=== PATIENT | female | born 1995 | race Caucasian/White ===

== ENCOUNTER 2017-03-08 08:17 | Emergency (ER) | payer OTHER ==
[~2017-03-08] VITALS: Ht 152.4 cm; Wt 53.0 kg
[2017-03-08 08:28] VITALS: Ht 152.4 cm; Wt 53.0 kg
[2017-03-08] MEDS ORDERED: KETOROLAC 30 MG INJ IV STA (08:52)
[2017-03-08 09:32] LABS: ADD SCAN DIFF NO
[2017-03-08 09:34] LABS: BASOPHILS % 0.4 % (0.0-2.0); EOSINOPHILS # 0.1 10^3/ul (0.0-0.5); EOSINOPHILS % 1.5 % (0.0-7.0); LYMPHOCYTES # 1.5 10^3/ul (0.8-2.9); LYMPHOCYTES % 18.4 % (18.0-55.0); MEAN CORPUSCULAR HEMOGLOBIN 30.7 pg (29.0-33.0); MEAN CORPUSCULAR HGB CONC 32.5 g/dl (32.0-37.0); MEAN CORPUSCULAR VOLUME 94.6 fl (72.0-104.0); MEAN PLATELET VOLUME 11.1 fl (7.4-10.4); MONOCYTE # 0.5 10^3/ul (0.3-0.9); MONOCYTES % 6.8 % (0.0-13.0); NEUTROPHIL # 5.8 10^3/ul (1.6-7.5); NEUTROPHILS % 72.5 % (30.0-74.0); PLATELET COUNT 232 10^3/UL (140-415); RED BLOOD COUNT 4.23 10^6/ul (4.20-5.40); RED CELL DISTRIBUTION WIDTH 12.2 % (11.5-14.5)
[2017-03-08 09:47] LABS: ALBUMIN 4.3 g/dl (3.3-4.9)
[2017-03-08 09:48] LABS: POTASSIUM 4.3 mmol/L (3.5-5.1)
[2017-03-08 09:50] LABS: ALBUMIN/GLOBULIN RATIO 1.02; BILIRUBIN,INDIRECT 0.2 mg/dl (0-1.1); BILIRUBIN,TOTAL 0.2 mg/dl (0.2-1.3); CREATININE 0.56 mg/dl (0.44-1.00); TOTAL PROTEIN 8.5 g/dl (6.1-8.1)
[2017-03-08 09:51] LABS: CALCIUM 9.7 mg/dl (8.4-10.2)
[2017-03-08 09:52] LABS: ADD UMIC YES; URINE BILIRUBIN (Dip) NEGATIVE (NEGATIVE); URINE BLOOD (Dip) 1+ (NEGATIVE); URINE COLOR LT. YELLOW (YELLOW); URINE GLUCOSE (Dip) NEGATIVE (NEGATIVE); URINE KETONES (Dip) NEGATIVE (NEGATIVE); URINE LEUKOCYTE ESTERASE (Dip) NEGATIVE (NEGATIVE); URINE NITRITE (Dip) NEGATIVE (NEGATIVE); URINE TOTAL PROTEIN (Dip) NEGATIVE (NEGATIVE); URINE UROBILINOGEN (Dip) 0.2 E.U./dL (0.1-1.0)
[2017-03-08 10:10] LABS: URINE RBCS 0-2 /HPF (0)
--- NOTE | 2017-03-08 10:33 | RADRPT ---
PROCEDURE: US Pelvis. CLINICAL INDICATION: pelvic pain TECHNIQUE: Multiple sonographic images of the pelvis were obtained utilizing a transabdominal and endovaginal technique. The images were reviewed on a PACS workstation. COMPARISON: None. FINDINGS: The uterus is normal in size with a normal appearance of the myometrium. The uterus measures 8.3 x 3.4 x 4.0 cm. The endometrial stripe is homogeneous in appearance and has the thickness of 5 mm. There is an IUD within the endometrium in the fundus of the uterus. Normal Doppler flow is identified in both ovaries. The right ovary measures 5.8 x 3.2 x 4.4 cm. There is a complex 3.4 cm hemorrhagic cyst in the right ovary. There is a 1.7 cm simple cyst in the right ovary. The left ovary measures 6.5 x 3.7 cm. There is a 4.3 cm complex hemorrhagic cyst in the left ovary. No free fluid is present within the pelvis. RPTAT: AA IMPRESSION: Enlarged ovaries with normal Doppler flow. Bilateral hemorrhagic cysts. .Abe Llanes MD, Date Time Electronically viewed and signed by .Abe Llanes MD, MD on 03/08/2017 10:33 .S/
--- NOTE | 2017-03-08 11:34 | RADRPT ---
PROCEDURE: XR Chest AP portable CLINICAL INDICATION: Right rib pain with inspiration TECHNIQUE: An AP portable radiograph of the chest was submitted. COMPARISON: None. FINDINGS: Support Hardware: None Cardiovascular: The cardiovascular silhouette appears unremarkable. Lung Garcia: The lung garcia appear clear with no nodule, alveolar infiltrate, or interstitial promi nence evident. Pleural Spaces: No pneumothorax or pleural effusion is identified. Osseous Structures: The osseous structures appear intact. Soft Tissues: The soft tissues appear unremarkable. IMPRESSION: Unremarkable portable chest. Physician Chyna Date Time Electronically viewed and signed by Tammie Frederick Physician on 03/08/2017 11:34 /
[2017-03-08] MEDS ORDERED: IBUP400T22 PO (11:55)
--- NOTE | 2017-03-08 15:32 | ERD ---
ER Documentation Chief Complaint Date/Time DATE: 03/08/17 TIME: 15:28 Chief Complaint ap/rib? pain x 4 days HPI 21-year-old female with no significant past medical history presents to the ED complaining of right lower pelvic abdominal cramping and right rib pain that started about 4 days ago. Reports that she had an IUD placed about 2 months ago and has some slight vaginal bleeding and is currently on her menses. Denies any chest pain, shortness of breath, wheezing, nausea, vomiting, diarrhea , constipation. Reports that pain is worse when she breathes in and out. Denies any recent traveling. Denies any leg swelling. Denies any trauma. Reports that she is unsure when is the date of her last menses. Denies any dysuria, urgency, frequency, hematuria. ROS All systems reviewed and are negative except as per history of present illness. Medications Home Meds Active Scripts Ibuprofen* (Motrin*) 400 Mg Tab, 400 MG PO Q6, #30 TAB Prov:CARLA GILLIAM PA-C 03/08/17 Allergies Allergies: Coded Allergies: No Known Allergy (Unverified , 03/08/17) PMhx/Soc Medical and Surgical Hx: pt denies Medical Hx, pt denies Surgical Hx History of Surgery: No Anesthesia Reaction: No Hx Neurological Disorder: No Hx Respiratory Disorders: No Hx Cardiac Disorders: No Hx Psychiatric Problems: No Hx Miscellaneous Medical Probl: No Hx Alcohol Use: No Hx Substance Use: No Hx Tobacco Use: No Smoking Status: Never smoker Physical Exam Vitals Vital Signs Date Time Temp Pulse Resp B/P Pulse Ox O2 Delivery O2 Flow Rate FiO2 03/08/17 08:28 98.1 78 18 120/78 99 Physical Exam Const: [id number], well-nourished. In no acute distress. Head: Atraumatic, normocephalic Eyes: Normal Conjunctiva without injection. No purulent discharge. ENT: Normal external ear, nose. Moist oropharynx without tonsillar exudates. Non -erythematous pharynx. Uvula midline. No drooling. No trismus. Neck: No cervical midline tenderness. Full range of motion. No meningismus. No cervical lymphadenopathy. No JVD. Resp: Clear to auscultation bilaterally. No wheezing, rhonchi, rales, or crackles. No accessory muscle use. No retractions. Cardio: Regular rate and rhythm. No murmurs, rubs or gallops. Abd: Soft, right pelvic tenderness, non distended. Normal bowel sounds. No palpable masses. No rebound tenderness. No guarding. Negative McBurney's point. Negative psoas sign. Negative obturator sign. Skin: No petechiae or rashes Back: No midline tenderness. No CVA tenderness. Ext: No cyanosis, or edema. Neur: Awake and alert. Normal gait. Normal coordination. Psych: Normal Mood and Affect Results 24 hrs Laboratory Tests Test 03/08/17 09:00 White Blood Count 8.010^3/ul Red Blood Count 4.2310^6/ul Hemoglobin 13.0g/dl Hematocrit 40.0% Mean Corpuscular Volume 94.6fl Mean Corpuscular Hemoglobin 30.7pg Mean Corpuscular Hemoglobin Concent 32.5g/dl Red Cell Distribution Width 12.2% Platelet Count 15913^3/UL Mean Platelet Volume 11.1fl Neutrophils % 72.5% Lymphocytes % 18.4% Monocytes % 6.8% Eosinophils % 1.5% Basophils % 0.4% Nucleated Red Blood Cells % 0.0/100WBC Neutrophils # 5.810^3/ul Lymphocytes # 1.510^3/ul Monocytes # 0.510^3/ul Eosinophils # 0.110^3/ul Basophils # 0.010^3/ul Nucleated Red Blood Cells # 0.010^3/ul Urine Color LT. YELLOW Urine Clarity CLEAR Urine pH 5.5 Urine Specific [place] 1.025 Urine Ketones NEGATIVE Urine Nitrite NEGATIVE Urine Bilirubin NEGATIVE Urine Urobilinogen 0.2 E.U./dL Urine Leukocyte Esterase NEGATIVE Urine Microscopic RBC 0-2/HPF Urine Microscopic WBC 0-2/HPF Urine Epithelial Cells RARE Urine Hemoglobin 1+ Urine Glucose NEGATIVE% Urine Total Protein NEGATIVE Sodium Level 144mmol/L Potassium Level 4.3mmol/L Chloride Level 103mmol/L Carbon Dioxide Level 29mmol/L Anion Gap 16 Blood Urea Nitrogen 9mg/dl Creatinine 0.56mg/dl Glucose Level 98mg/dl Calcium Level 9.7mg/dl Total Bilirubin 0.2mg/dl Direct Bilirubin 0.00mg/dl Indirect Bilirubin 0.2mg/dl Aspartate Amino Transf (AST/SGOT) 15IU/L Alanine Aminotransferase (ALT/SGPT) 25IU/L Alkaline Phosphatase 77IU/L Total Protein 8.5g/dl Albumin 4.3g/dl Globulin 4.20g/dl Albumin/Globulin Ratio 1.02 Lipase 30U/L Current Medications Medications (Trade) Dose Ordered Sig/Mena Route PRN Reason Start Time Stop Time Status Last Admin Dose Admin Ketorolac Tromethamine (Toradol) 30 mg ONCE STAT IV 03/08/17 08:52 03/08/17 08:55 DC 03/08/17 09:06 Procedures/MDM 21-year-old female patient with no significant past medical history presents the ED complaining of right pelvic cramping and right-sided rib pain that started 4 days ago. Patient is afebrile nontoxic appearing. Patient has normal vital signs. Patient was further worked up with CBC, CMP, lipase, UA, urine , chest x-ray, pelvic ultrasound. Patient's pain and symptoms have improved after treatment with 30 mg IV ketorolac. CBC: No leukocytosis. No e/o of systemic infection. No e/o anemia. CMP: No e/o severe acidosis, alkalosis, renal failure, diabetic ketoacidosis, liver disease Lipase within normal limits. Urine: No leukocyte esterase, no nitrites, 1+ hematuria. Urine : Negative PROCEDURE: XR Chest AP portable CLINICAL INDICATION: Right rib pain with inspiration TECHNIQUE: An AP portable radiograph of the chest was submitted. COMPARISON: None. FINDINGS: Support Hardware: None Cardiovascular: The cardiovascular silhouette appears unremarkable. Lung Molina: The lung molina appear clear with no nodule, alveolar infiltrate, or interstitial prominence evident. Pleural Spaces: No pneumothorax or pleural effusion is identified. Osseous Structures: The osseous structures appear intact. Soft Tissues: The soft tissues appear unremarkable. IMPRESSION: Unremarkable portable chest. PROCEDURE: US Pelvis. CLINICAL INDICATION: pelvic pain TECHNIQUE: Multiple sonographic images of the pelvis were obtained utilizing a transabdominal and endovaginal technique. The images were reviewed on a PACS workstation. COMPARISON: None. FINDINGS: The uterus is normal in size with a normal appearance of the myometrium. The uterus measures 8.3 x 3.4 x 4.0 cm. The endometrial stripe is homogeneous in appearance and has the thickness of 5 mm. There is an IUD within the endometrium in the fundus of the uterus. Normal Doppler flow is identified in both ovaries. The right ovary measures 5.8 x 3.2 x 4.4 cm. There is a complex 3.4 cm hemorrhagic cyst in the right ovary. There is a 1.7 cm simple cyst in the right ovary. The left ovary measures 6.5 x 3.7 cm. There is a 4.3 cm complex hemorrhagic cyst in the left ovary. No free fluid is present within the pelvis. RPTAT: AA IMPRESSION: Enlarged ovaries with normal Doppler flow. Bilateral hemorrhagic cysts. Patient symptoms could likely be due to her bilateral hemorrhagic ovarian cysts noted on the ultrasound. Patient also likely has chest wall pain to the right rib area. 1+ hematuria noted, differential also includes nephrolithiasis however low suspicion for septic renal stone, urinary tract infection, or pyelonephritis. No indication for antibiotics at this time. Patient is appropriate for treatment with NSAIDs. A differential diagnosis considered includes but is not limited to gastritis, GERD, peptic ulcer disease, cholecystitis, choledocholithiasis, cholangitis, pancreatitis, appendicitis, bowel obstruction, ileus, volvulus, hepatitis, perforated viscus, diverticulitis , abdominal hernia, acute abdomen, mesenteric ischemia or other emergent conditions. Low suspicion for acute abdomen and surgical abdomen at this time. Low suspicion for acute myocardial infarction, pneumothorax, pneumonia, cardiac tamponade, pulmonary embolism, pleural effusion, AAA, aortic dissection, Boerhaave's syndrome, cardiac dysrhythmias,meningitis, intracranial bleed, seizure, stroke, TIA or other emergent conditions. Discharge medications: Ibuprofen Follow up with primary care physician in 1-2 days for referral to sleep technologist. Instructed patient to return to the ED sooner for any worsening symptoms. Patient's questions were answered. Patient understood and agreed with discharge plan. Patient discharged stable. Departure Diagnosis: Primary Impression: Abdominal pain Abdominal location: right lower quadrant Qualified Code: R10.31 - Right lower quadrant abdominal pain Additional Impression: Rib pain on right side Condition: Stable Patient Instructions: Abdominal Pain, What Are Ovarian Cysts?, Chest Wall Pain , Costochondritis Referrals: COMMUNITY CLINICS YOU HAVE RECEIVED A MEDICAL SCREENING EXAM AND THE RESULTS INDICATE THAT YOU DO NOT HAVE A CONDITION THAT REQUIRES URGENT TREATMENT IN THE EMERGENCY DEPARTMENT. FURTHER EVALUATION AND TREATMENT OF YOUR CONDITION CAN WAIT UNTIL YOU ARE SEEN IN YOUR DOCTORS OFFICE WITHIN THE NEXT 1-2 DAYS. IT IS YOUR RESPONSIBILITY TO MAKE AN APPOINTMENT FOR FOLOW-UP CARE. IF YOU HAVE A PRIMARY DOCTOR --you should call your primary doctor and schedule an appointment IF YOU DO NOT HAVE A PRIMARY DOCTOR YOU CAN CALL OUR PHYSICIAN REFERRAL HOTLINE AT IF YOU CAN NOT AFFORD TO SEE A PHYSICIAN YOU CAN CHOSE FROM THE FOLLOWING [facility] [address] [facility] [address] [facility] [address] [facility] [address] [facility] [address] [facility]. [facility] [address] [facility]. [facility] YOU HAVE RECEIVED A MEDICAL SCREENING EXAM AND THE RESULTS INDICATE THAT YOU DO NOT HAVE A CONDITION THAT REQUIRES URGENT TREATMENT IN THE EMERGENCY DEPARTMENT. FURTHER EVALUATION AND TREATMENT OF YOUR CONDITION CAN WAIT UNTIL YOU ARE SEEN IN YOUR DOCTORS OFFICE WITHIN THE NEXT 1-2 DAYS. IT IS YOUR RESPONSIBILITY TO MAKE AN APPOINTMENT FOR FOLOW-UP CARE. IF YOU HAVE A PRIMARY DOCTOR --you should call your primary doctor and schedule and appointment IF YOU DO NOT HAVE A PRIMARY DOCTOR YOU CAN CALL OUR PHYSICIAN REFERRAL HOTLINE AT . IF YOU CAN NOT AFFORD TO SEE A PHYSICIAN YOU CAN CHOSE FROM THE FOLLOWING [facility]: [facility] [address] [place] [address] [facility] [address] [place] [address] [facility] [address] [place] [address] [facility] Additional Instructions: Call your primary care doctor TOMORROW for an appointment during the next 2-3 days.See the doctor sooner or return here if your condition worsens before your appointment time. CARLA GILLIAM PA-C March 08, 2017 15:32 CARLA GILLIAM PA-C March 08, 2017 15:32
== END 2017-03-08 12:10 | disposition left against medical advice (07) ==
LOC: FTE 08:17
DX: R10.31 Right lower quadrant pain (principal); R07.81 Pleurodynia
CPT/HCPCS: 36415; 71010; 76830; 76856; 80053; 81001; 83690; 85025; 96374; J1885; Z7502; 81003

== ENCOUNTER 2017-08-24 10:22 | Emergency (ER) | payer OTHER ==
[~2017-08-24] VITALS: Ht 162.6 cm; Wt 60.0 kg
[~2017-08-24 10:22] MED LIST: IBUP400T22 PO
[2017-08-24 10:32] VITALS: Ht 162.6 cm; Wt 60.0 kg
[2017-08-24] MEDS ORDERED: CYCL-319 PO (12:00)
--- NOTE | 2017-09-06 18:51 | ERD ---
ER Documentation Chief Complaint Chief Complaint right lower back pain x 4 days, no injury HPI 3-year-old female presenting with a chief complaint of back pain 4 days. Rates the back pain as 5 out of 10. Has not taken any medications to relieve the symptoms. Pain worse with movement. Patient denies saddle paraesthesia, incontinence, urinary retention, RPND, or pain exacerbated by valsalva. Denies fever, chills, night sweats, weight loss, or increase symptoms at night. Patient also denies history of cardiovascular disease, sciatica, disk herniation , spinal stenosis, fibromyalgia, cancer, HIV, IVDU, arthritis or recent surgery. Patient has no other complaints and describes no other associated manifestations. Nursing notes have been reviewed and are consistent with history given. ROS All systems reviewed and are negative except as per history of present illness. Medications Home Meds Active Scripts Cyclobenzaprine Hcl* (Cyclobenzaprine Hcl*) 10 Mg Tablet, 10 MG PO TID, #15 TAB Prov:DEVIN HUDSON PA-C 08/24/17 Ibuprofen* (Motrin*) 400 Mg Tab, 400 MG PO Q6, #30 TAB Prov:CARLA GILLIAM PA-C 03/08/17 Allergies Allergies: Coded Allergies: No Known Allergy (Unverified , 03/08/17) PMhx/Soc History of Surgery: No Anesthesia Reaction: No Hx Neurological Disorder: No Hx Respiratory Disorders: No Hx Cardiac Disorders: No Hx Psychiatric Problems: No Hx Miscellaneous Medical Probl: No Hx Alcohol Use: No Hx Substance Use: No Hx Tobacco Use: No Physical Exam Physical Exam Const: Well-appearing. Mild distress. Back: No midline, flank or CVA tenderness. Negative straight leg raise. Range of motion decreased secondary to pain. Neur: No saddle anesthesia. Neurovascularly intact bilaterally. Head: Normocephalic, Atraumatic. Eyes: Non-injected; No discharge. EOMI and FAYE bilaterally. Ears: Normal External Ears, EACs clear, TM normal bilaterally without erythema. Nose: Normal external nose; no discharge, or sinus tenderness. Oral: No oral edema visualized. Mucous membranes moist and pink. Neck: No tenderness. No cervical lymphadenopathy, or masses palpated. Supple ~ No meningismus. Pulm: Good air movement in upper and lower respiratory tracts. Clear to auscultation bilaterally. No dyspnea or stridor. Cardio: Regular rate and rhythm; No murmurs, gallops or rubs auscultated. Radia pulses 2+ bilaterally. No cyanosis noted. Capillary refill less than 2 seconds. Abd: Normal bowel sounds. Soft, non tender, non distended. MS: Normal motor strength, normal tone with gross examination. Skin: No petechiae or rashes. Good turgor. Ext: No edema. Normal movement of all extremities grossly observed. Psych: Normal Mood and Affect. Procedures/MDM Patient was evaluated and worked up for back pain as described in history and physical examination. Patient refused medications in the ED. test negative. X-ray was obtained and read as unremarkable for acute pathology. Most likely diagnosis back strain. Thus, the treatment plan will include cyclobenzaprine for discomfort as well as conservative therapy which has been discussed with the patient. At this time I do not suspect cauda equina syndrome , spinal cord compression, aortic involvement, epidural abscess, obstructive nephrolithiasis, pyelonephritis, or other neurovascular compromise. I have spoke with the patient regarding their condition and future management. They have verbally responded that they understand their status and treatment plan. The patients vitals are stable, and their current condition is appropriate for discharge. The patient will be given discharge instructions with return precautions. Departure Diagnosis: Primary Impression: Back pain Back pain location: low back pain Chronicity: acute Back pain laterality: right Sciatica presence: without sciatica Qualified Code: M54.5 - Acute right-sided low back pain without sciatica Condition: Stable Patient Instructions: Back Pain (Acute Or Chronic) Additional Instructions: Follow up with your PCP within the next 1-3 days for a more thorough evaluation and a possible referral to a specialist. Return the the emergency department immediately if symptoms worsen or change. If you have any questions regarding medications, ask your pharmacist or us before you leave. If any adverse reactions occur while taking your medications, discontinue the treatment and return to the emergency department immediately. Take your medications as directed, and complete the entire course of treatment. DEVIN HUDSON PA-C Sep 06, 2017 18:51
== END 2017-08-24 12:46 | disposition home or self-care (01) ==
LOC: FTE 10:22
DX: M54.5 Low back pain (principal)
CPT/HCPCS: 99283